=== PATIENT | female | born 2000 | race Caucasian/White ===

== ENCOUNTER → 2019-12-30 | Outpatient (CLI) | payer OTHER ==
[~2019-12-30] MED LIST: ACETAMINOPHEN-CO5 ML PO; AUGMENTIN400 MG/53 PO; BACTROBAN22 GM TP; SULFAMETHOXAZOL20 ML PO
== END ==
LOC: M.RAD 14:59 → M.ULTRA 14:59
DX: M79.604 Pain in right leg (principal); R60.0 Localized edema; M25.571 Pain in right ankle and joints of right foot; M79.89 Other specified soft tissue disorders

== ENCOUNTER → 2020-01-14 | Outpatient (CLI) | payer OTHER | LOC: M.MRI 01-10 10:15 | DX: R22.41 Localized swelling, mass and lump, right lower limb (principal); M25.571 Pain in right ankle and joints of right foot ==